=== PATIENT | male | born 1980 | race Caucasian/White ===

== ENCOUNTER 2023-02-04 02:50 | Emergency (ER) | payer BC, OTHER ==
[~2023-02-04] VITALS: Ht 182.9 cm; Wt 144.7 kg
[2023-02-04 02:57] VITALS: BP 143/82
[2023-02-04 04:30] VITALS: BP 143/82
--- NOTE | 2023-02-04 04:30 | NUR ---
Patient taken to bed 7.
--- NOTE | 2023-02-04 04:45 | NUR ---
PATIENT CALLED BY RN FORENSIC. NO REPLY
== END 2023-02-04 04:47 | disposition left against medical advice (07) ==
LOC: MED 02:50
DX: R11.2 Nausea with vomiting, unspecified (principal); R19.7 Diarrhea, unspecified; Z53.21 Procedure and treatment not carried out due to patient leaving prior to being seen by health care provider
CPT/HCPCS: 99281